=== PATIENT | female | born 1995 | race Caucasian/White ===

== ENCOUNTER 2020-02-25 14:45 | Emergency (ER) | payer SELFPAY ==
[2020-02-25 15:26] LABS: #Basophils 0.1 thou/uL (0.0-0.2); #Lymphocytes 0.8 thou/uL (1.20-3.40); #Monocytes 0.8 thou/uL (0.11-0.59); #Neutrophils 11.3 thou/uL (1.40-6.50); %Basophils 0.4 % (0.0-1.0); %Eosinophils 0.2 % (0.0-10.0); %Lymphocytes 6.3 % (21.0-51.0); %Monocytes 6.4 % (0.0-10.0); %Neutrophils 86.7 % (42.0-75.0); Mean Corpuscular HGB CONC 32.2 g/dL (32.0-36.0); Mean Corpuscular Hemoglobin 29.4 pg (27.0-31.0); Mean Corpuscular Volume 91.1 fL (78.0-98.0); Mean Platelet Volume 6.6 fL (7.4-10.4); Platelet Count 253 thou/uL (130-400); RBC Distribution Width 13.9 % (11.5-14.5); Red Blood Cell (RBC) Count 4.77 mill/uL (4.20-5.40); White Blood Cell (WBC) Count 13.1 thou/uL (4.8-10.8)
[2020-02-25 15:36] LABS: Bilirubin Small (Negative); Blood, Urine Small (Negative); Clarity Cloudy (Clear); Glucose, Urine (Dipstick) Negative (Negative); Leukocyte Moderate (Negative); Nitrite Negative (Negative); Protein, Urine (Dipstick) 100 mg/dL (Neg-Trace)
[2020-02-25 15:40] LABS: ALT (SGPT) 27 U/L (8-55); AST (SGOT) 24 U/L (5-34); Alkaline Phosphatase 68 U/L (40-110); Anion Gap 15 mmol/L (10-20); BUN (Urea Nitrogen) 11 mg/dL (7.0-18.7); Calc. Creatinine Clearance 0 mL/min (70-130); Calcium 9.4 mg/dL (7.8-10.44); Carbon Dioxide 23 mmol/L (22-29); Chloride 100 mmol/L (98-107); Estimated GFR-MDRD 81; Glucose 122 mg/dL (70-105); Potassium 3.4 mmol/L (3.5-5.1); Sodium 135 mmol/L (136-145)
[2020-02-25 15:41] LABS: Bacteria/HPF 3+ HPF (None Seen); Mucous/LPF 1+ LPF (<2+); Renal Epithelial 0-3 HPF (None Seen); WBC/HPF 21-50 HPF (0-3)
[2020-02-25 15:42] LABS: Pregnancy Test - Urine (BHCG) Negative (Negative)
[2020-02-25 15:43] LABS: Pregu Control Background? CLEAR/WHITE (CLR/WHITE); Pregu Control Bar Appear? YES (CONTROL BAR); Specific Gravity 1.015 (1.002-1.036)
[2020-02-25] MEDS ORDERED: Acetaminophen 500 MG TAB ONE (15:44)
[2020-03-01 18:30] LABS: Chlam.trachomatis by PCR,Urine DETECTED (NotDetected)
== END 2020-02-25 17:40 | disposition home or self-care (01) ==
LOC: BURERS 14:45
DX: N10 Acute pyelonephritis (principal)
CPT/HCPCS: 80053; 81003; 81015; 81025; 83605; 85025; 87040; 87077; 87086; 87186; 87491; 87591; 96365; 96366; J1956

== ENCOUNTER 2020-02-26 06:30 | Emergency (ER) | payer SELFPAY ==
[2020-02-26] MEDS ORDERED: Ondansetron ODT 4 MG TAB ONE (06:44)
[2020-02-26] MEDS ORDERED: Pantoprazole 40 MG VIAL ONE (07:02)
[2020-02-26] MEDS ORDERED: Ondansetron PF 4 MG/2 ML Vial ONE (07:02)
[2020-02-26] MEDS ORDERED: Famotidine In NaCl 20 mg/50 ml Premix Bag ONE (07:06)
[2020-02-26] MEDS ORDERED: Metoclopramide HCl 10 MG/2 ML VIAL ONE (07:36)
== END 2020-02-26 09:20 | disposition home or self-care (01) ==
LOC: BURERS 06:30
DX: N10 Acute pyelonephritis (principal); R11.2 Nausea with vomiting, unspecified
CPT/HCPCS: 96365; 96367; 96375; C9113; J1956; J2405; J2765; Q0162

== ENCOUNTER 2021-10-23 17:55 | Emergency (ER) | payer OTHER ==
[2021-10-23] MEDS ORDERED: Ondansetron ODT 4 MG TAB ONE (18:56)
== END 2021-10-23 18:55 | disposition home or self-care (01) ==
LOC: BURERS 17:55
DX: A08.4 Viral intestinal infection, unspecified (principal)
CPT/HCPCS: 99283; Q0162